=== PATIENT | female | born 1990 ===

== ENCOUNTER → 2021-01-10 | Outpatient (CLI) | payer OTHER ==
[~2021-01-10] MED LIST: MOTRIN 800800 MG/TAB PO; PRENATAL TABLET PO
== END ==
LOC: ZCOL.LAB 07:08
DX: Z20.822 Contact with and (suspected) exposure to COVID-19 (principal)

== ENCOUNTER 2021-01-14 12:52 | Inpatient (IN) | payer OTHER ==
[~2021-01-14] VITALS: Ht 165.1 cm; Wt 94.5 kg
[2021-01-14] VITALS (36 sets, daily range): BP systolic 119–161; BP diastolic 57–113; PULSE 55–104; TEMP 97.6–98.5
--- NOTE | 2021-01-14 13:00 | NUR ---
Pt arrives on unit ambulatory with spouse. States contractions x2 days that have increased over the morning every 4-5 minutes. Denies vaginal bleeding, nitin CORBETT reports GFM. Changed into a clean gown. EFM and toco applied. VSS. SVE per this RN 3-4/70/-2. BOWI. Admission assessment completed. Dr. Iglesias notified. Orders for admission and to augment with pitocin. Ancef 2g for GBS+. IV started in LH. Labs drawn. LR infusing. Consents signed. Pt updated on POC. Bed locked in low position. Call light within reach.
[2021-01-14] MEDS ORDERED: PRENATAL TABLET PO (13:27)
--- NOTE | 2021-01-14 13:31 | NUR ---
Onset of approximately 6 minute contraction. 1344-FHR deceleration into the 70s at vandana lasting for approximately 4 minutes. Pitocin shut off. LR bolus infusing. O2 applie via simple mask at 10L. Pt repostioned RL. 1340-FHR returned to [address] Iglesias reviews FHR strip. Orders to keep pitocin off. 1415-Dr. Iglesias at bedside. SVE per provider /-2. AROM of clear fluid. Pericare performed. PT updated on POC. No questions or concerns at this time.
[2021-01-14 13:33] LABS: BASO % 0.4 % (0.0-2.0); EOS # 0.1 (0.0-0.7); EOS % 1.4 % (0-4.0); GRAN % 70.8 % (42.2-75.2); HEMATOCRIT 33.9 % (37.0-47.0); HEMOGLOBIN 11.1 g/dl (12.5-16.0); LYMPH # 1.8 (1.2-3.4); LYMPH % 18.5 % (20.0-51.0); MEAN CELL VOLUME 87 fl (80.0-100.0); MEAN CORPUSCULAR HEMOGLOBIN 28 pg (27.0-31.0); MEAN CORPUSCULAR HGB CONC 33 g/dl (33.0-37.0); MEAN PLATELET VOLUME 10.6 fl (7.4-10.4); MONO # 0.8 (0.1-0.6); MONO % 8.5 % (1.7-9.3); PLATELET COUNT 242 K/mm3 (130-400); RED BLOOD COUNT 3.91 M/mm3 (4.10-5.30)
--- NOTE | 2021-01-14 15:15 | NUR ---
Dr. Iglesias on unit. Orders to restart pitocin at 2mU. Pt agrees to POC.
--- NOTE | 2021-01-14 16:00 | NUR ---
SVE per provider. Orders to continue increasing pitocin per policy.
--- NOTE | 2021-01-14 20:00 | NUR ---
1999- THIS RN TO BEDSIDE TO HELP ASSIST PATIENT INTO POSITION FOR PLACEMENT OF THE EPIDURAL. PATIENT PAIN INCREASED SIGNIFICANTLY AND NOT COPING WELL AT THIS POINT. ASKED CHARGE TO CALL THE PROVIDER JUST IN CASE AND HAVE HER COME IN. THIS RN REMAINS AT BEDSIDE. 2002- BRIDGETTE FLOWERS AT BEDSIDE FOR PLACEMENT OF EPIDURAL. EFM AND TOCO TRACING INTERMITTENTLY DUE TO MATERNAL POSITION. MATERNAL 02 PULSE OX ON. 2013- TEST DOSE, SEE ANESTHESIA RECORD. PATIENT STATED THERE WAS A LOT OF PRESSURE AND THOUGHT THE BABY WAS COMING. HELPED PATIENT TO LAYING POSITION, NO HEAD NOTED AND ENCOURAGED PATIENT TO TAKE SOME DEEP BREATHS AND WHEN THAT CONTRACTION WAS OVER TO LAY BACK SO I COULD CHECK HER. 2015- SVE, PATIENT COMPLETE AND 0 STATION. PATIENT NOT COPING WELL AND STATING THERE WAS A LOT OF PRESSURE AND THAT THE BABY WAS COMING AT THIS TIME. 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 2016- DR. WALTER AT BEDSIDE FOR DELIVERY. PATIENT AND ROOM SET UP FOR DELIVERY. PATIENT COACHED THROUGH PUSHING DURING THIS TIME. 2022- OF VIABLE FEMALE . INFANT PLACED TO MOTHER ABDOMEN WHERE NURSERY NURSE ASSUMES CARE AT THIS TIME. PITOCIN TURNED OFF AND PROGRAMMED FOR DELIVERY OF PLACENTA. 2024- OF PLACENTA. PITOCIN TURNED ON PER PROTOCOL AT 333ML/HR. FUNDUS MASSAGED TO FIRM BY THIS RN WITH MODERATE LOCHIA NOTED. FIRST DEGREE TEAR NOTED BY PROVIDER AND REPAIRED. EBL NOTED TO BE 200. 2029- RECOVERY STARTED- FUNDUS FIRM, VITALS STABLE, PATIENT AND ROOM CLEANED UP AND PUT BACK TOGETHER. NEW CHUX AND PERIPAD PLACED UNDER PATIENT. PATIENT DENIES NEEDS. CALL LIGHT WITHIN REACH.
[2021-01-15 00:15] VITALS: BP 133/73; PULSE 71; TEMP 97.5
[2021-01-15 09:20] VITALS: BP 113/67; PULSE 76; TEMP 97.7
--- NOTE | 2021-01-15 13:33 | NUR ---
Initial visit; Parents thanked [facility] for offering congratulations and God's blessings for the of their daughter. [facility] thanked family for choosing [facility].
[2021-01-15 13:45] VITALS: BP 130/86; PULSE 70; TEMP 97.9
[2021-01-15] MEDS ORDERED: MOTRIN 800800 MG/TAB PO (17:57)
[2021-01-15 20:25] VITALS: BP 136/65; PULSE 69; TEMP 98.1
--- NOTE | 2021-01-15 23:10 | NUR ---
2225- DISCHARGE INSTRUCTIONS REVIEWED WITH PT AND SPOUSE, QUESTIONS ENCOURAGE AND ANSWERED, UNDERSTANDING VERBALIZED. 2310- BABY IN INFANT CARRIER, PT OFF THE UNIT AMBULATORY WITH SPOUSE AND FOR HOME.
== END 2021-01-15 23:10 | disposition home or self-care (01) | DRG 807 ==
LOC: LDRO 12:52 → LDR 13:14 → LDRO 13:25 → LDR 13:26 → OB 13:26
PROVIDERS: ADMIT Obstetrics & Gynecology
PROC: 10E0XZZ Delivery of Products of Conception, External Approach (ICD-10-PCS; principal; 2021-01-14)
PROC: 0HQ9XZZ Repair Perineum Skin, External Approach (ICD-10-PCS; 2021-01-14)
DX: O99.820 Streptococcus B carrier state complicating pregnancy (principal); Z37.0 Single live birth; O99.02 Anemia complicating childbirth; D64.9 Anemia, unspecified; O99.214 Obesity complicating childbirth; O70.0 First degree perineal laceration during delivery; Z3A.39 39 weeks gestation of pregnancy
CPT/HCPCS: J0690; J2210; J2590; J2795; J7120